=== PATIENT | female | born 1975 | race Two or more races ===

== ENCOUNTER 2020-06-14 09:56 | Outpatient (CLI) | payer OTHER ==
[~2020-06-14] VITALS: Ht 152.4 cm; Wt 54.4 kg
== END 2020-06-14 10:30 | disposition home or self-care (01) ==
LOC: OFIC 805 09:56
PROVIDERS: ATTEND Otolaryngology Otology & Neurotology
DX: J02.8 Acute pharyngitis due to other specified organisms (principal); K21.9 Gastro-esophageal reflux disease without esophagitis